=== PATIENT | male | born 1975 | race Caucasian/White ===

== ENCOUNTER 2016-09-14 16:45 | Outpatient (CLI) | payer MEDICAID | END 2016-09-14 16:46 | disposition home or self-care (01) | DX: K76.0 Fatty (change of) liver, not elsewhere classified (principal); R79.89 Other specified abnormal findings of blood chemistry ==

== ENCOUNTER 2017-01-22 13:28 | Outpatient (CLI) | payer MEDICAID ==
[2017-01-22 19:29] LABS: BILIRUBIN,DIRECT 0.1 mg/dL (0.1-0.5); BILIRUBIN,TOTAL 0.9 mg/dL (0.2-1.0); TOTAL PROTEIN 7.6 g/dL (6.7-8.2)
== END 2017-01-22 13:29 | disposition home or self-care (01) ==
LOC: LAB.N 13:28
PROVIDERS: ATTEND Nurse Practitioner Gerontology
DX: R94.5 Abnormal results of liver function studies (principal)
CPT/HCPCS: 36415; 80076